=== PATIENT | male | born 2000 | race Caucasian/White ===

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

== ENCOUNTER 2020-11-16 21:25 | Emergency (ER) | payer SELFPAY ==
[2020-11-16] MEDS ORDERED: Acetaminophen/HYDROcodone 325-10 MG Tab PO ONE (21:54)
--- NOTE | 2020-11-16 21:59 | EDM.PDOC ---
ED HPI GENERAL MEDICAL PROBLEM - General Chief Complaint: Headache Stated Complaint: PAINFUL BUMP ABOVE RIGHT EYEBROW Time Seen by Provider: 11/16/20 21:49 - History of Present Illness INITIAL COMMENTS - FREE TEXT/NARRATIVE: Otherwise well 19-year-old male presenting with tender right facial pain superior to the right eyebrow. Patient states for the last month on and off he will develop a throbbing right superior facial pain that is associated with a tender lump that he can feel just above his right eyebrow. No fevers or chills no nasal symptoms no neck pain or stiffness no dizziness no other symptoms no exacerbating or alleviating factors. Patient is taken vtiv-vqv-yviwpql pain medications with minimal relief. Patient reports he develops the symptoms approximately daily and that when it happens last for approximately 30 minutes. Patient reports 6 out of 10 discomfort at this time. Right Head Pain Score (Numeric/FACES): 6 - Related Data Allergies Allergy/AdvReac Type Severity Reaction Status Date / Time No Known Allergies Allergy Verified 11/16/20 21:47 Home Meds: Home Meds . [No Known Home Meds] 03/11/18 [History] Past Medical History - Past Health History Medical/Surgical History: Denies Medical/Surgical History Psychiatric History: Reports: None Hematologic History: Reports: None - Infectious Disease History Infectious Disease History: Reports: None Social & Family History - Family History Family Medical History: No Pertinent Family History ED ROS GENERAL - Review of Systems Review Of Systems: See Below Free Text/Narrative/Comment: General: No fever. Skin: No rash. Eyes: No vision problems. ENT: No sore throat. Neck: No neck stiffness. Respiratory: No shortness of breath. Cardiac: No chest pain. Gastrointestinal: No nausea, vomiting or abdominal pain. Urinary: No dysuria. Musculoskeletal: No myalgias/arthralgias. Neurologic: Per HPI ED EXAM, GENERAL - Physical Exam Exam: See Below Free Text/Narrative:: General Appearance: No acute distress, appears comfortable Skin: No rash HEENT: atraumatic, sclera anicteric, mucous membranes moist, patient with approximately 1.5 cm x 1 cm tender firm swelling just superior to the right superior orbital rim the overlying skin is nontender and without erythema or swelling and no palpable skin cyst. Neck: Normal range of motion Musculoskeletal: No edema or tenderness Neurologic: Awake, alert, no obvious deficits, moving all extremities, cranial nerves III through XI intact bilaterally Psychiatric: Appropriate, cooperative Course - Vital Signs Last Recorded V/S: Last Vital Signs Temp 97.7 F 11/16/20 21:48 Pulse 65 11/17/20 00:17 Resp 18 11/17/20 00:17 BP 112/49 L 11/17/20 00:17 Pulse Ox 98 11/17/20 00:17 - Orders/Labs/Meds Orders: Active Orders 24 hr Category Date Time Status Sodium Chloride 0.9% [Saline Flush] Med 11/16/20 22:50 Active 10 ml FLUSH ASDIRECTED PRN Sodium Chloride 0.9% [Saline Flush] Med 11/16/20 22:50 Active 2.5 ml FLUSH ASDIRECTED PRN Saline Lock Insert [OM.PC] Stat Oth 11/16/20 22:51 Ordered Medication Orders Sodium Chloride (Sodium Chloride 0.9% 10 Ml Syringe) 10 ml FLUSH ASDIRECTED PRN PRN Reason: Keep Vein Open Last Admin: 11/16/20 23:17 Dose: 10 ml Documented by: NATE Sodium Chloride (Sodium Chloride 0.9% 2.5 Ml Syringe) 2.5 ml FLUSH ASDIRECTED PRN PRN Reason: Keep Vein Open Last Admin: 11/16/20 23:17 Dose: 2.5 ml Documented by: NATE Labs: Laboratory Tests 11/16/20 11/16/20 11/16/20 Range/Units 23:20 23:20 23:20 WBC 9.44 (4.0-11.0) K/uL RBC 4.96 (4.50-5.90) M/uL Hgb 15.3 (13.0-17.0) g/dL Hct 44.7 (38.0-50.0) % MCV 90.1 (80.0-98.0) fL MCH 30.8 (27.0-32.0) pg MCHC 34.2 (31.0-37.0) g/dL RDW Std Deviation 42.9 (28.0-62.0) fl RDW Coeff of Corrie 13 (11.0-15.0) % Plt Count 225 (150-400) K/uL MPV 10.50 (7.40-12.00) fL Neut % (Auto) 65.5 (48.0-80.0) % Lymph % (Auto) 23.2 (16.0-40.0) % [place] % (Auto) 9.6 (0.0-15.0) % Eos % (Auto) 1.6 (0.0-7.0) % Baso % (Auto) 0.1 (0.0-1.5) % Neut # (Auto) 6.2 H (1.4-5.7) K/uL Lymph # (Auto) 2.2 (0.6-2.4) K/uL [place] # (Auto) 0.9 H (0.0-0.8) K/uL Eos # (Auto) 0.2 (0.0-0.7) K/uL Baso # (Auto) 0.0 (0.0-0.1) K/uL Nucleated RBC % 0.0 /100WBC Nucleated RBCs # 0 K/uL ESR 3 (0-14) mm/hr Sodium 139 (136-148) mmol/L Potassium 4.0 (3.5-5.1) mmol/L Chloride 104 (98-107) mmol/L Carbon Dioxide 25.0 (21.0-32.0) mmol/L BUN 14 (7.0-18.0) mg/dL Creatinine 1.1 (0.8-1.3) mg/dL Est Cr Clr Drug Dosing 118.56 mL/min Estimated GFR (MDRD) > 60.0 ml/min Glucose 105 (74-106) mg/dL Calcium 8.7 (8.5-10.1) mg/dL Total Bilirubin 0.3 (0.2-1.0) mg/dL AST 13 L (15-37) IU/L ALT 35 (14-63) IU/L Alkaline Phosphatase 104 (46-116) U/L C-Reactive Protein 0.60 (0.00-0.90) mg/dL Total Protein 7.7 (6.4-8.2) g/dL Albumin 3.9 (3.4-5.0) g/dL Globulin 3.8 (2.6-4.0) g/dL Albumin/Globulin Ratio 1.0 (0.9-1.6) SARS-CoV-2 RNA (EVA) (NEGATIVE) 05/03/21 Range/Units 23:36 WBC (4.0-11.0) K/uL RBC (4.50-5.90) M/uL Hgb (13.0-17.0) g/dL Hct (38.0-50.0) % MCV (80.0-98.0) fL MCH (27.0-32.0) pg MCHC (31.0-37.0) g/dL RDW Std Deviation (28.0-62.0) fl RDW Coeff of Corrie (11.0-15.0) % Plt Count (150-400) K/uL MPV (7.40-12.00) fL Neut % (Auto) (48.0-80.0) % Lymph % (Auto) (16.0-40.0) % [place] % (Auto) (0.0-15.0) % Eos % (Auto) (0.0-7.0) % Baso % (Auto) (0.0-1.5) % Neut # (Auto) (1.4-5.7) K/uL Lymph # (Auto) (0.6-2.4) K/uL [place] # (Auto) (0.0-0.8) K/uL Eos # (Auto) (0.0-0.7) K/uL Baso # (Auto) (0.0-0.1) K/uL Nucleated RBC % /100WBC Nucleated RBCs # K/uL ESR (0-14) mm/hr Sodium (136-148) mmol/L Potassium (3.5-5.1) mmol/L Chloride (98-107) mmol/L Carbon Dioxide (21.0-32.0) mmol/L BUN (7.0-18.0) mg/dL Creatinine (0.8-1.3) mg/dL Est Cr Clr Drug Dosing mL/min Estimated GFR (MDRD) ml/min Glucose (74-106) mg/dL Calcium (8.5-10.1) mg/dL Total Bilirubin (0.2-1.0) mg/dL AST (15-37) IU/L ALT (14-63) IU/L Alkaline Phosphatase (46-116) U/L C-Reactive Protein (0.00-0.90) mg/dL Total Protein (6.4-8.2) g/dL Albumin (3.4-5.0) g/dL Globulin (2.6-4.0) g/dL Albumin/Globulin Ratio (0.9-1.6) SARS-CoV-2 RNA (EVA) NEGATIVE (NEGATIVE) Meds: Medications Generic Name Dose Route Start Last Admin Trade Name Freq PRN Reason Stop Dose Admin Sodium Chloride 10 ml 11/16/20 22:50 11/16/20 23:17 Sodium Chloride 0.9% 10 Ml Syringe FLUSH 10 ml ASDIRECTED PRN Administration Keep Vein Open Sodium Chloride 2.5 ml 11/16/20 22:50 11/16/20 23:17 Sodium Chloride 0.9% 2.5 Ml Syringe FLUSH 2.5 ml ASDIRECTED PRN Administration Keep Vein Open Discontinued Medications Generic Name Dose Route Start Last Admin Trade Name Freq PRN Reason Stop Dose Admin Hydrocodone Bitart/Acetaminophen 1 tab 11/16/20 21:54 11/16/20 22:26 Acetaminophen/Hydrocodone 325-10 Mg Tab PO 11/16/20 21:55 1 tab ONETIME ONE Administration Departure - Departure Time of Disposition: 01:17 Disposition: DC/Tfer to Acute Hospital 02 Condition: Good Clinical Impression: Subarachnoid hemorrhage, Sinusitis - Discharge Information *PRESCRIPTION DRUG MONITORING PROGRAM REVIEWED*: Not Applicable *COPY OF PRESCRIPTION DRUG MONITORING REPORT IN PATIENT EMIL: Not Applicable Referrals: PCP,None [Primary Care Provider] - Forms: ED Department Discharge Sepsis Event Note (ED) - Evaluation Sepsis Screening Result: No Definite Risk - Focused Exam Vital Signs: Vital Signs Temp Pulse Resp BP Pulse Ox 11/17/20 00:17 65 18 112/49 L 98 11/16/20 23:50 67 17 107/52 L 97 11/16/20 23:18 78 16 111/52 L 98 11/16/20 21:48 97.7 F 100 17 122/62 98 - My Orders Last 24 Hours: My Active Orders 11/16/20 22:50 Sodium Chloride 0.9% [Saline Flush] 10 ml FLUSH ASDIRECTED PRN Sodium Chloride 0.9% [Saline Flush] 2.5 ml FLUSH ASDIRECTED PRN 11/16/20 22:51 Saline Lock Insert [OM.PC] Stat - Assessment/Plan Last 24 Hours: My Active Orders 11/16/20 22:50 Sodium Chloride 0.9% [Saline Flush] 10 ml FLUSH ASDIRECTED PRN Sodium Chloride 0.9% [Saline Flush] 2.5 ml FLUSH ASDIRECTED PRN 11/16/20 22:51 Saline Lock Insert [OM.PC] Stat Assessment:: 19-year-old male presenting with tender right forehead pain. Patient does appear to have an asymmetry on exam. There is no overlying skin change that would suggest a abscess cellulitis or cyst. The swelling could be unrelated and he may simply be developing frontal headache. But given the findings on exam CT has been ordered to further define the abnormality. [place] for pain and will reassess. 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 Pt without h/o trauma or thunder clap headache. MRI recommended. Given the lack of ENT coverage lack of neurosurgical coverage and lack of ability to get MRI imaging I recommended the patient agreed to transfer for higher level of care. Patient discussed briefly with [facility] in [place]. They are not sure if they will have ENT coverage starting tomorrow morning so they will call and discuss with ENT and then get back to me. In the meantime IV will be placed labs will be ordered. 2300: Pt discussed with Dr. Dominguez. They are unable to accept the patient due to their lack of ENT coverage. He also states that the patient will likely need a higher level of care, such as [place] or [place]. 0028: Pt discussed with Dr. Sarah FU in [place]. She reviewed the images herself. From her stand point the patient should be seen in her clinic tomorrow AM. The patient will need a CT sinus prior to that appointment. However, the patient will also need to be cleared by neurosurgery prior to this. We are awaiting callback from Dr. Tripp of neurosugery. 0115: Pt discussed with Dr. Tripp of neurosurgery. He accepts the patient for transfer through the ED. Given the radiology concern for subarachnoid hemorrhage agrees emergent MRI is indicated. Given possible infection he recommends against LP to exclude subarachnoid hemorrhage. He will see the patient in the ED and address the possible intracranial issues prior to ENT consultation. Pt discussed with Dr. Rapp in the ED and patient accepted for transfer. Pt will be flown given the concern for intracranial bleeding.
--- NOTE | 2020-11-16 22:45 | CT ---
INDICATION: Right frontal headache with swelling over the frontal region TECHNIQUE: CT Head without i.v. contrast. Coronal and sagittal reformats were obtained. COMPARISON: None FINDINGS: CSF space: The ventricles are normal for age. Brain: There is faint linear densities over the frontal lobes bilaterally, especially on images 17-19 which is suspicious for mild subarachnoid hemorrhage. No mass-effect or midline shift is seen. 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 The mastoid air cells are clear. The visualized orbits are grossly unremarkable. The calvarium is unremarkable in appearance with no fractures identified. IMPRESSION: 1. There is faint linear densities over the frontal lobes bilaterally, especially on images 17-19 which is suspicious for mild subarachnoid hemorrhage. Evaluation with head MRI and close clinical follow-up is recommended. 2. 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 Given the patient`s history, correlation with physical exam is recommended to exclude Pott Puffy tumor. The findings were discussed with Dr. Eaton at 10:38 PM. Dictated by Tanvir Infante MD @ 11/16/2020 10:33:00 PM Please note that all CT scans at this facility use dose modulation, iterative reconstruction, and/or weight-based dosing when appropriate to reduce radiation dose to as low as reasonably achievable. Dictated by: Tanvir Infante MD @ 11/16/2020 22:44:03 (Electronically Signed)
[2020-11-16] MEDS ORDERED: Sodium Chloride 0.9% 10 ML Syringe FLUSH PRN (22:50)
[2020-11-16] MEDS ORDERED: Sodium Chloride 0.9% 2.5 ML Syringe FLUSH PRN (22:50)
[2020-11-16 23:42] LABS: BLOOD UREA NITROGEN,BUN 14 mg/dL (7.0-18.0); CHLORIDE,CL 104 mmol/L (98-107); GLUCOSE RANDOM 105 mg/dL (74-106); SODIUM,NA 139 mmol/L (136-148)
== END 2020-11-17 01:58 ==
LOC: MW.ED 21:25
DX: S06.6X9A Traumatic subarachnoid hemorrhage with loss of consciousness of unspecified duration, initial encounter (principal); J32.9 Chronic sinusitis, unspecified; Z20.822 Contact with and (suspected) exposure to COVID-19; W22.8XXA Striking against or struck by other objects, initial encounter
CPT/HCPCS: 36415; 70450; 80053; 85025; 85652; 86140; 87635; 99285; A9270; 99284; U0002

== ENCOUNTER 2021-05-13 17:44 | Emergency (ER) | payer SELFPAY ==
--- NOTE | 2021-05-13 18:53 | EDM.PDOC ---
ED HPI GENERAL MEDICAL PROBLEM - General Chief Complaint: Upper Extremity Injury/Pain Stated Complaint: PAIN IN WRIST/HAND Time Seen by Provider: 05/13/21 18:27 Source of Information: Reports: Patient History Limitations: Reports: No Limitations - History of Present Illness INITIAL COMMENTS - FREE TEXT/NARRATIVE: HISTORY AND PHYSICAL: History of present illness: Patient is a 20-year-old male who presents to the emergency room with complaints of right wrist pain. He states unsure of how, but he feels like he injured his wrist as he has pain. Three years ago he had surgery requiring plates and screws. Patient denies any fever, chills, headache, change in vision, syncope or near syncope. Denies any chest pain, back pain, shortness of breath or cough. Denies any GI or symptoms. No recent travel or sick contacts. Review of systems: As per history of present illness and below otherwise all systems reviewed and negative. Past medical history: As per history of present illness and as reviewed below otherwise noncontributory. Surgical history: As per history of present illness and as reviewed below otherwise noncontributory. Social history: See social history for further information Family history: As per history of present illness and as reviewed below otherwise noncontributory. Physical exam: General: Well developed and well nourished. Alert and orientated x 3. Nontoxic in appearance and in no acute distress. Vital signs are stable and have been reviewed by me. Nursing notes were reviewed. HEENT: Atraumatic, normocephalic, pupils equal and reactive bilaterally, negative for conjunctival pallor or scleral icterus, mucous membranes moist, TMs normal bilaterally, throat clear, neck supple, nontender, trachea midline. No drooling or trismus noted. No meningeal signs. No hot potato voice noted. Lungs: Clear to auscultation bilaterally. No wheezes, rales, or rhonchi. Chest nontender. Normal work of breathing, no accessory muscles used. Heart: S1S2, regular rate and rhythm without overt murmur, gallops, or rubs. No JVD. No peripheral edema Abdomen: Soft, nondistended, nontender. Skin: Intact, warm, dry. No lesions or rashes noted. Hematologic: No petechiae or purpra. Mucosa appropriate color and normal nail bed color and refill. Extremities: Atraumatic, moves all extremities per self without difficulty or deficits, negative for cords or calf pain. Neurovascular unremarkable. Neuro: Awake, alert, oriented. Cranial nerves II through XII unremarkable. Cerebellum unremarkable. Motor and sensory unremarkable throughout. Exam nonfocal. Psychiatric: Mood and affect are appropriate. Normal thought process. Answering questions appropriately. Please note that the patient was seen and evaluated during the 2019 SARS-CoV-2 novel coronavirus pandemic period. Community viral transmission is ongoing at time of this encounter and the emergency department is operating under pandemic response procedures. Medical Decision Making: Patient is a 20-year-old male who presents to the emergency room with complaints of right wrist pain. He states he had surgery on his wrist 3 years ago and is concerned he may have done something to it. He is unsure if he had an actual injury but does have pain and would like an x-ray. Physical exam is unremarkable. He moves all extremities per self and has no soft tissue swelling, redness or obvious injury. X-ray shows no acute finding. I have talked with the patient about today's findings, in addition to providing specific details for plan of care. Reassessment at the time of disposition demonstrates that the patient is in no acute distress. The patient is stable for discharge, counseling was provided and we discussed in great detail signs and symptoms that would prompt them to return to the Emergency Department. Medication, follow up and supportive care measures were reviewed and discussed. Voices understanding and is agreeable to plan of care. Denies any further questions or concerns at this time. Diagnostics: wrist x-ray Therapeutics: None Prescription: Ibuprofen Impression: Wrist pain Plan: 1. You were evaluated today on an emergent basis. Your x-ray shows no concerni ng findings or post operative complications. Rest, ice, elevate the extremity as able. 2. You can alternate Tylenol and ibuprofen as needed for pain and fever management. 3. We encourage you to follow up with your primary care provider and/or recommended specialist in the next few days for re-evaluation and further care/management. 4. If your symptoms should worsen, new symptoms develop or any of the signs and symptoms we discussed should arise please return to the emergency room or call 911 (if needed). Definitive disposition and diagnosis as appropriate pending reevaluation and review of above. Right Wrist Pain Score (Numeric/FACES): 7 - Related Data Allergies Allergy/AdvReac Type Severity Reaction Status Date / Time No Known Allergies Allergy Verified 11/16/20 21:47 Home Meds: Home Meds Ibuprofen [Ibu] 800 mg PO TID PRN #30 tablet 05/13/21 [Rx] Past Medical History - Past Health History Medical/Surgical History: Denies Medical/Surgical History HEENT History: Reports: None Cardiovascular History: Reports: None Respiratory History: Reports: None Gastrointestinal History: Reports: None Genitourinary History: Reports: None Musculoskeletal History: Reports: None, Fracture Other Musculoskeletal History: hx of fracture of R wrist - plates and screws placed for repair (2018) Neurological History: Reports: None Psychiatric History: Reports: None Endocrine/Metabolic History: Reports: None Hematologic History: Reports: None Immunologic History: Reports: None Oncologic (Cancer) History: Reports: None Dermatologic History: Reports: None - Infectious Disease History Infectious Disease History: Reports: None - Past Surgical History Head Surgeries/Procedures: Reports: None HEENT Surgical History: Reports: None Cardiovascular Surgical History: Reports: None Respiratory Surgical History: Reports: None GI Surgical History: Reports: None Male Surgical History: Reports: None Musculoskeletal Surgical History: Reports: None Social & Family History - Family History Family Medical History: No Pertinent Family History - Tobacco Use Tobacco Use Status *Q: Current Every Day Tobacco User Years of Tobacco use: 3 Packs/Tins Daily: 1 - Caffeine Use Caffeine Use: Reports: None - Recreational Drug Use Recreational Drug Use: No Review of Systems - Review of Systems Review Of Systems: Comprehensive ROS is negative, except as noted in HPI. ED EXAM, GENERAL - Physical Exam Exam: See Below (See dictation) Course - Vital Signs Last Recorded V/S: Last Vital Signs Temp Pulse 80 05/13/21 20:17 Resp 16 05/13/21 18:22 BP 128/77 05/13/21 20:17 Pulse Ox 98 05/13/21 18:22 Departure - Departure Time of Disposition: 19:54 Disposition: Home, Self-Care 01 Clinical Impression: Wrist pain, right - Discharge Information Prescriptions: Ibuprofen [Ibu] 800 mg PO TID PRN #30 tablet PRN Reason: Pain Instructions: Wrist Pain, Adult, [id number] Referrals: PCP,None [Primary Care Provider] - Forms: ED Department Discharge Additional Instructions: The following information is given to patients seen in the emergency department who are being discharged to home. This information is to outline your options for follow-up care. We provide all patients seen in our emergency department with a follow-up referral. The need for follow-up, as well as the timing and circumstances, are variable depending upon the specifics of your emergency department visit. If you don't have a primary care physician on staff, we will provide you with a referral. We always advise you to contact your personal physician following an emergency department visit to inform them of the circumstance of the visit and for follow-up with them and/or the need for any referrals to a consulting specialist. The emergency department will also refer you to a specialist when appropriate. This referral assures that you have the opportunity for follow-up care with a specialist. All of these measure are taken in an effort to provide you with optimal care, which includes your follow-up. Under all circumstances we always encourage you to contact your private physician who remains a resource for coordinating your care. When calling for follow-up care, please make the office aware that this follow-up is from your recent emergency room visit. If for any reason you are refused follow-up, please contact the [facility] Emergency Department at and asked to speak to the emergency department charge nurse. [facility] [address] [place] [id number] [address] Thank you for choosing the [facility] emergency department in [place] for your medical needs today. It was a pleasure caring for you. Today you were seen in the emergency department for wrist pain Your prescription was electronically sent to: [place] pharmacy 1. You were evaluated today on an emergent basis. Your x-ray shows no concerning findings or post operative complications. Rest, ice, elevate the extremity as able. 2. You can alternate Tylenol and ibuprofen as needed for pain and fever management. 3. We encourage you to follow up with your primary care provider and/or recommended specialist in the next few days for re-evaluation and further care/management. 4. If your symptoms should worsen, new symptoms develop or any of the signs and symptoms we discussed should arise please return to the emergency room or call 911 (if needed). Sepsis Event Note (ED) - Evaluation Sepsis Screening Result: No Definite Risk - Focused Exam Vital Signs: Vital Signs Pulse Resp BP Pulse Ox 05/13/21 20:17 80 128/77 05/13/21 18:22 85 16 113/59 L 98 05/13/21 18:10 91 15 122/61 97
--- NOTE | 2021-05-13 19:24 | CR ---
Indication: Pain Technique: Three views right wrist Comparison: August 16, 2020 Findings: Bones: Alignment is normal. No fractures or bone lesions. Plate and screw hardware in the distal radius. No periprosthetic lucency. Joint spaces: Unremarkable. Soft tissues: Unremarkable. Impression: No acute osseous abnormality or evidence for or complication. Dictated by Natasha Wing MD @ 05/13/2021 7:21:37 PM (Electronically Signed)
== END 2021-05-13 20:19 | disposition home or self-care (01) ==
LOC: MW.ED 17:44
DX: M25.531 Pain in right wrist (principal); Z72.0 Tobacco use
CPT/HCPCS: 73110-26-RT; 73110-RT; 99283-25

== ENCOUNTER 2021-08-21 01:35 | Emergency (ER) | payer BC ==
[2021-08-21] MEDS ORDERED: Ketorolac 30 MG/ML SDV IM ONE (02:02)
[2021-08-21] MEDS ORDERED: Lidocaine 5% 700 MG Patch TRDERM ONE (02:03)
[2021-08-21] MEDS ORDERED: Cyclobenzaprine 10 MG Tab PO ONE (02:03)
== END 2021-08-21 02:16 | disposition home or self-care (01) ==
LOC: MW.ED 01:35
DX: S39.012A Strain of muscle, fascia and tendon of lower back, initial encounter (principal)
CPT/HCPCS: 96372; 99283; A9270; J1885

== ENCOUNTER 2021-08-25 18:44 | Emergency (ER) | payer BC ==
[2021-08-25] MEDS ORDERED: Diazepam 5 MG Tab PO ONE (19:49)
[2021-08-25] MEDS ORDERED: Ketorolac 30 MG/ML SDV IM ONE (19:49)
== END 2021-08-25 21:14 | disposition home or self-care (01) ==
LOC: MW.ED 18:44
DX: S29.012A Strain of muscle and tendon of back wall of thorax, initial encounter (principal); X50.1XXA Overexertion from prolonged static or awkward postures, initial encounter
CPT/HCPCS: 71101; 96372; 99283; A9270; J1885

== ENCOUNTER 2023-05-07 12:17 | Emergency (ER) | payer SELFPAY ==
[2023-05-07] MEDS ORDERED: oxyCODONE 5 MG Tab PO STA (13:09)
[2023-05-07] MEDS ORDERED: Acetaminophen 500 MG Tab PO STA (13:09)
[2023-05-07] MEDS ORDERED: Diphtheria,Pertussis(Acell),Tetanus Vaccine 0.5 ML Syringe IM ONE (13:10)
[2023-05-07] MEDS ORDERED: Ibuprofen 800 MG Tab PO STA (13:10)
[2023-05-07] MEDS ORDERED: Lidocaine 1% 5 ML VIAL INJECT STA (13:10)
== END 2023-05-07 15:24 | disposition home or self-care (01) ==
LOC: MW.ED 12:17
DX: S82.832A Other fracture of upper and lower end of left fibula, initial encounter for closed fracture (principal); S61.310A Laceration without foreign body of right index finger with damage to nail, initial encounter; Z23 Encounter for immunization; W23.0XXA Caught, crushed, jammed, or pinched between moving objects, initial encounter
CPT/HCPCS: 12001; 73610; 90471; 90715; 99283; A9270; J3490

== ENCOUNTER 2023-05-10 08:07 | Day surgery (SDC) | payer SELFPAY ==
[~2023-05-10 08:07] MED LIST: Albuterol 0.083% 2.5 MG/3 ML Neb Soln NEB PRN; HYDROmorphone 1 MG/ML Syringe IVPUSH PRN; Lactated Ringers 1,000 ML IV SCH; Metoclopramide 10 MG/2 ML SDV IVPUSH PRN; Morphine 2 MG/ML SYRINGE IVPUSH PRN; Naloxone 0.4 MG/ML SDV IVPUSH PRN; Ondansetron 4 MG/2 ML SDV IVPUSH PRN; droPERidol 5 MG/2 ML SDV IVPUSH PRN; fentaNYL 50 MCG/ML SDV IVPUSH PRN
[2023-05-10] MEDS ORDERED: EPINEPHrine 1 MG/1 ML Amp ONE (09:37)
[2023-05-10] MEDS ORDERED: fentaNYL 100 MCG/2 ML SDV ONE (09:38)
[2023-05-10] MEDS ORDERED: Ropivacaine 0.5% 5 MG/ML 30 ML SDV ONE (09:39)
[2023-05-10] MEDS ORDERED: Bupivacaine 0.5%/EPINEPHrine 1:200,000 30 ML SDV ONE (10:16)
[2023-05-10] MEDS ORDERED: ceFAZolin 1 GM Vial ONE ×2 (10:16→10:50)
[2023-05-10] MEDS ORDERED: Ketamine 500 mg/10 ML MDV ONE (10:44)
[2023-05-10] MEDS ORDERED: propofoL 50 ML ONE (10:44)
[2023-05-10] MEDS ORDERED: Water For Injection, Sterile 20 ML ONE (10:49)
[2023-05-10] MEDS ORDERED: ceFAZolin 2 GM Vial ONE (10:49)
[2023-05-10] MEDS ORDERED: Ondansetron 4 MG/2 ML SDV ONE (11:36)
[2023-05-10] MEDS ORDERED: Propofol 200 MG/20 ML SDV ONE (13:07)
== END 2023-05-10 13:35 | disposition home or self-care (01) ==
LOC: MW.SDS 08:07
PROVIDERS: ATTEND Orthopaedic Surgery
DX: S82.62XA Displaced fracture of lateral malleolus of left fibula, initial encounter for closed fracture (principal); S93.432A Sprain of tibiofibular ligament of left ankle, initial encounter; M54.50 Low back pain, unspecified; G89.29 Other chronic pain; E66.9 Obesity, unspecified; F17.210 Nicotine dependence, cigarettes, uncomplicated; Z79.899 Other long term (current) drug therapy; Z68.34 Body mass index [BMI] 34.0-34.9, adult; W31.9XXA Contact with unspecified machinery, initial encounter
CPT/HCPCS: 27792; 27829; 64445; 64447; 76000; J0171; J0690; J2405; J2704; J2795; J3010; J3490; J7120; C1713

== ENCOUNTER 2023-06-09 21:21 | Emergency (ER) | payer OTHER ==
[2023-06-09 21:50] LABS: BASOPHILS ABSOLUTE AUTO 0.04 K/uL (0.00-0.20); BASOPHILS PERCENT AUTO 0.6 % (0.0-1.0); EOSINOPHILS ABSOLUTE AUTO 0.12 K/uL (0.00-0.45); EOSINOPHILS PERCENT AUTO 1.8 % (0.0-6.0); HEMATOCRIT 41.8 % (42.0-52.0); HEMOGLOBIN 14.5 g/dL (14.0-18.0); IMMATURE GRAN ABSOLUTE AUTO 0.02 K/uL (0.00-0.05); IMMATURE GRAN PERCENT AUTO 0.3 % (0.0-0.4); LYMPHOCYTES ABSOLUTE AUTO 3.14 K/uL (1.00-4.80); LYMPHOCYTES PERCENT AUTO 46.2 % (24.0-44.0); MEAN CORPUSCULAR HEMOGLOBIN 30.8 pg (28.0-32.0); MEAN CORPUSCULAR HGB CONC 34.7 g/dL (32.0-36.0); MEAN CORPUSCULAR VOLUME 88.7 fL (83.0-99.0); MONOCYTES PERCENT AUTO 8.8 % (0.0-8.0); NEUTROPHILS ABSOLUTE AUTO 2.88 K/uL (1.80-7.70); NEUTROPHILS PERCENT AUTO 42.3 % (41.0-71.0); PLATELET COUNT,PLT 242 K/uL (150-400); RED BLOOD CELL COUNT 4.71 M/uL (4.52-5.90)
[2023-06-09 22:05] LABS: INR 1.02 (0.86-1.11); PTT,PARTIAL THROMBOPLSTIN TIME 28.2 SEC (23.9-30.7)
[2023-06-09 22:11] LABS: CREATININE 1.2 mg/dL (0.8-1.3); EST CRCL DRUG DOSING (CG) 118.55 mL/min; POTASSIUM,K 3.7 mmol/L (3.5-5.1)
== END 2023-06-09 22:29 | disposition home or self-care (01) ==
LOC: MW.ED 21:21
DX: R04.0 Epistaxis (principal); E66.9 Obesity, unspecified; Z68.37 Body mass index [BMI] 37.0-37.9, adult
CPT/HCPCS: 36415; 80048; 85025; 85610; 85730; 99283

== ENCOUNTER 2024-01-07 16:20 | Emergency (ER) | payer OTHER ==
[2024-01-07] MEDS: Ketorolac 30 MG/ML SDV IM ONE (19:35)
== END 2024-01-07 21:10 | disposition home or self-care (01) ==
LOC: MW.ED 16:20
DX: M25.472 Effusion, left ankle (principal); Z75.8 Other problems related to medical facilities and other health care
CPT/HCPCS: 73610; 93971; 96372; 99284; J1885; 99283

== ENCOUNTER 2024-04-20 14:46 | Emergency (ER) | payer SELFPAY | END 2024-04-20 16:46 | disposition home or self-care (01) | LOC: MW.ED 14:46 | DX: S99.911A Unspecified injury of right ankle, initial encounter (principal); F17.210 Nicotine dependence, cigarettes, uncomplicated | CPT/HCPCS: 73610-26-RT; 73610-RT; 99283 ==

== ENCOUNTER 2025-02-17 08:09 | Emergency (ER) | payer BC, OTHER | END 2025-02-17 10:34 | disposition home or self-care (01) | LOC: MW.ED 08:09 | DX: S83.91XA Sprain of unspecified site of right knee, initial encounter (principal); V86.46XA Person injured while boarding or alighting from a dirt bike or motor/cross bike, initial encounter | CPT/HCPCS: 29505; 73590-26-RT; 73590-RT; 99283 ==